=== PATIENT | female | born 1990 | race Caucasian/White ===

== ENCOUNTER 2019-07-12 10:13 | Inpatient (IN) | payer OTHER ==
[~2019-07-12] VITALS: Ht 167.6 cm; Wt 80.0 kg
[2019-07-12] VITALS (22 sets, daily range): BP systolic 112–1134; BP diastolic 63–95; PULSE 56–91; TEMP 97.7–98.7
--- NOTE | 2019-07-12 10:25 | NUR ---
1025-G1L0 38.3WEEK GBS NEG PATIENT OF DR. BURTON AMBULATORY TO LR5 WITH COMPLAINT OF SROM AT 0930 WHILE AT HOME, REPORTS CRAMPING BUT NO "CONTRACTIONS YET." ASSISTED IN TO BED AND PLACED ON EFM. REACTIVE FHR, TOCO TRACING CONTRACTIONS EVERY 3-4 MIN, AMNITEST POSITIVE, CLEAR FLUID NOTED, SVE 60/-3. ASSESSMENT COMPLETE, UPDATED ON PLAN OF CARE. 1055-DR. DANG UPDATED ON PATIENT. ORDERS RECIEVED SEE PHYSICIAN NOTIFICATION.
[2019-07-12] MEDS ORDERED: PRENATAL (10:27)
[2019-07-12] MEDS ORDERED: ZYRTEC 10MG10 MG PO (10:28)
[2019-07-12 12:53] LABS: BASO # 0.1 (0.0-0.2); BASO % 0.7 % (0.0-2.0); EOS # 0.2 (0.0-0.7); EOS % 1.7 % (0-4.0); GRAN # 6.5 (1.4-6.5); GRAN % 70.6 % (42.2-75.2); HEMATOCRIT 40.1 % (37.0-47.0); HEMOGLOBIN 14.7 g/dl (12.5-16.0); LYMPH # 1.7 (1.2-3.4); LYMPH % 18.6 % (20.0-51.0); MEAN CELL VOLUME 97 fl (80.0-100.0); MEAN CORPUSCULAR HEMOGLOBIN 35 pg (27.0-31.0); MEAN CORPUSCULAR HGB CONC 37 g/dl (33.0-37.0); MONO # 0.7 (0.1-0.6); MONO % 7.9 % (1.7-9.3); PLATELET COUNT 179 K/mm3 (130-400); RED BLOOD COUNT 4.15 M/mm3 (4.10-5.30); REDCELL DISTRIBUTION WIDTH-CV 11.8 % (11.5-14.5)
--- NOTE | 2019-07-12 15:00 | NUR ---
MOTHER TO [facility], WR THEN BACK TO [facility]
--- NOTE | 2019-07-12 15:15 | NUR ---
OXYGEN ON PATIENT AT 1510. PATIENT LL, RL, WR, TO KNEE CHEST.
--- NOTE | 2019-07-12 15:34 | NUR ---
BY DR DANG. TO MOTHERS CHEST. CORD CUT BY FOB, TO CARE OF URVASHI GRANADO. PLACENTA EXPRESSED BY DR DANG, OXYTOCIN 333 MLS/ HR. FUNDAL MASSAGE PROVIDED. 2ND DEGREE LACERATION REPAIRED BY DR DANG. SRIGHT CATH PREFORMED BY DR DANG. EPIDURAL PUMP SHUT OFF BY URBANO ARGUETA. ICE PACK TO PERINEUM, NEW BEDPAD AND WARM BLANKET PROVIDED. RECOVERY STARTED AT 1545.
[2019-07-12] MEDS ORDERED: MOTRIN 800800 MG/TAB PO (18:12)
[2019-07-13 00:25] VITALS: BP 121/69; PULSE 74; TEMP 98.6
[2019-07-13 04:40] VITALS: BP 129/81; PULSE 62; TEMP 98.8
[2019-07-13 06:55] VITALS: BP 120/84; PULSE 63
--- NOTE | 2019-07-13 10:18 | NUR ---
Initial visit; Parents thanked for looking in on them and offering congratulations and God'ds blessings for the of their daugahter. thanked family for choosing [facility].
[2019-07-13 12:15] VITALS: BP 129/80; PULSE 78; TEMP 98.1
[2019-07-13 17:35] VITALS: BP 126/86; PULSE 80; TEMP 97.6
[2019-07-13 20:00] VITALS: BP 122/68; PULSE 72; TEMP 98
[2019-07-14 08:23] VITALS: BP 132/94; PULSE 81; TEMP 97.8
== END 2019-07-14 12:15 | disposition home or self-care (01) | DRG 807 ==
LOC: LDRO 10:13 → OB 11:15 → LDR 11:15 → OB 17:34 → LDRO 07-23 10:08
PROVIDERS: Obstetrics & Gynecology; ADMIT Obstetrics & Gynecology
PROC: 10E0XZZ Delivery of Products of Conception, External Approach (ICD-10-PCS; principal; 2019-07-12)
PROC: 0KQM0ZZ Repair Perineum Muscle, Open Approach (ICD-10-PCS; 2019-07-12)
DX: O42.92 Full-term premature rupture of membranes, unspecified as to length of time between rupture and onset of labor (principal); Z37.0 Single live birth; O70.1 Second degree perineal laceration during delivery; Z3A.38 38 weeks gestation of pregnancy
CPT/HCPCS: J2590; J2795; J7120

== ENCOUNTER 2020-12-10 07:51 | Inpatient (IN) | payer OTHER ==
[~2020-12-10] VITALS: Ht 167.6 cm; Wt 80.9 kg
[~2020-12-10 07:51] MED LIST: MOTRIN 800800 MG/TAB PO; PRENATAL; ZYRTEC 10MG10 MG PO
[2020-12-19] VITALS (45 sets, daily range): BP systolic 95–126; BP diastolic 56–676; PULSE 66–102; TEMP 98–98.9
--- NOTE | 2020-12-19 07:20 | NUR ---
0720- 39.3, G2L1 arrives on unit for scheduled IOL. Ambulatory to LDR5 with spouse. Oriented to room and plan of care. Patient reports normal movement. Denies any LOF, VB, or regular contractions. 0730- EFM explained and placed. VS obtained. Assesment completed. Consent forms expalined and signed. 0740- IV to left forearm. Routine labs obtained via IV site. LR infusing. 0755- Pitocin explianed and started at 2mu per protocol. 0815- Dr. Pulido to bedside. Provider reviews plan of care with patient and spouse who verbalize understanding. AROM at this time by Dr. Pulido for moderate amount of clear fluid. SVE 2-360/-2. Danyell care and patient wedge left. Resting with call light within reach.
[2020-12-19 08:25] LABS: BASO % 0.3 % (0.0-2.0); EOS # 0.3 (0.0-0.7); EOS % 2.3 % (0-4.0); GRAN # 7.7 (1.4-6.5); GRAN % 71.4 % (42.2-75.2); HEMATOCRIT 39.7 % (37.0-47.0); LYMPH % 18.2 % (20.0-51.0); MEAN CELL VOLUME 97 fl (80.0-100.0); MEAN CORPUSCULAR HEMOGLOBIN 34 pg (27.0-31.0); MEAN CORPUSCULAR HGB CONC 35 g/dl (33.0-37.0); MEAN PLATELET VOLUME 10.7 fl (7.4-10.4); MONO # 0.8 (0.1-0.6); MONO % 7.3 % (1.7-9.3); PLATELET COUNT 210 K/mm3 (130-400); RED BLOOD COUNT 4.08 M/mm3 (4.10-5.30); REDCELL DISTRIBUTION WIDTH-CV 12.1 % (11.5-14.5)
--- NOTE | 2020-12-19 08:50 | NUR ---
0850- Patient up to bathroom to void. To birthing ball. When EFM reapplied, FHR noted to be 100's. To bed and right and left lateral. LR bolus. FHR returnes to baseline of 120's after approx 3min. Dr. Pulido updated. See physician notification.
--- NOTE | 2020-12-19 14:50 | NUR ---
1450- Patient reports increased vaginal pressure/pain. SVE by this RN C/+2. Dr. Pulido on unit and to bedside. Updated on SVE. Nursery, primary, and propellant charge loader to bedside. Patient prepped for delivery. 1455- Straight cath by Dr. Pulido. Patient instructed on pushing and begins to push with ctx with Dr. Pulido at bedside. Strong maternal effort noted, decent noted. 1457- Spontaneous vaginal delivery of viable female . to mother's chest. Cord clamped x2 and cut by father of . Care of assumed by aDy Bustillos RN. Pitocin stopped. 1500- Spontaneous and intact delivery of placenta. Pitocin resumed at 333ml/hr per protocol. Second degree perineal laceration repaired by Dr. Pulido. Straight cath by Dr. Pulido. Fundus firm, midline, and bleeding minimal. Danyell care provided, pads changed, and ice pack to perineum. Plan of care and safety precautions reviewed with patient and spouse who verbalize understanding. Epidural pump stopped. See doctor dictation, anesthesia record, and nurses notes.
--- NOTE | 2020-12-19 18:25 | NUR ---
Pt continues skin to skin with baby. Reviewed dinner plans, avaiability of food delivery. Pt able to move L leg, barely able to move R leg. Explained to pt that we would move to her when she's able to get up to the bathroom.
--- NOTE | 2020-12-19 19:45 | NUR ---
Epidural catheter dc'd. Up to bathroom with steady gait, voids good amount, performs own pericare. Back to bed without difficulty.
--- NOTE | 2020-12-19 20:15 | NUR ---
Ambulates to room with steady gait, oriented to room, monitor, plan of care.
[2020-12-20 02:45] VITALS: BP 109/64; PULSE 82; TEMP 98.8
[2020-12-20 06:48] VITALS: BP 100/51; PULSE 78; TEMP 97.8
--- NOTE | 2020-12-20 09:06 | NUR ---
Initial visit: Parents thanked Nutrition Faculty Member for offering congratulations and God's blessings for the of their daughter. Nutrition Faculty Member thanked family for choosing [facility].
[2020-12-20] MEDS ORDERED: MOTRIN 800800 MG/TAB PO (09:44)
[2020-12-20 17:05] VITALS: BP 96/62; PULSE 90; TEMP 98.1
[2020-12-20 20:00] VITALS: BP 122/77; PULSE 75; TEMP 98
[2020-12-21 07:40] VITALS: BP 119/73; PULSE 83; TEMP 98.2
--- NOTE | 2020-12-21 08:29 | NUR ---
REPORT RECEIVED FROM OFF GOING RN. CARE TAKEN OVER BY THIS RN.
== END 2020-12-21 12:00 | disposition home or self-care (01) | DRG 807 ==
LOC: OB 07:51 → LDR 12-19 07:14 → OB 12-19 10:30
PROVIDERS: ADMIT Obstetrics & Gynecology
PROC: 10907ZC Drainage of Amniotic Fluid, Therapeutic from Products of Conception, Via Natural or Artificial Opening (ICD-10-PCS; principal; 2020-12-19)
PROC: 10E0XZZ Delivery of Products of Conception, External Approach (ICD-10-PCS; 2020-12-19)
PROC: 0KQM0ZZ Repair Perineum Muscle, Open Approach (ICD-10-PCS; 2020-12-19)
PROC: 3E033VJ Introduction of Other Hormone into Peripheral Vein, Percutaneous Approach (ICD-10-PCS; 2020-12-19)
DX: O36.5930 Maternal care for other known or suspected poor fetal growth, third trimester, not applicable or unspecified (principal); Z37.0 Single live birth; O99.824 Streptococcus B carrier state complicating childbirth; O70.1 Second degree perineal laceration during delivery; Z3A.39 39 weeks gestation of pregnancy
CPT/HCPCS: J2540; J2590; J7120